=== PATIENT | male | born 1945 | race Caucasian/White ===

== ENCOUNTER 2019-06-24 10:08 | Observation (INO) | payer OTHER ==
[~2019-06-24] VITALS: Ht 172.7 cm; Wt 75.7 kg
[2019-06-24 10:45] LABS: BASOPHILS % (AUTO) 0.2 % (0.0-5.0); EOSINOPHILS % (AUTO) 1.7 % (0.0-8.0); HEMATOCRIT 34.6 % (42-54); LYMPHOCYTES % (AUTO) 20.6 % (21.0-51.0); MEAN CORPUSCULAR HGB CONC 33.2 g/dL (32.0-36.0); MEAN CORPUSCULAR VOLUME 87.4 fL (79-99); MONOCYTES % (AUTO) 6.1 % (3.0-13.0); NEUTROPHILS % (AUTO) 70.7 % (40.0-77.0); PLATELET COUNT (AUTO) 114 K/uL (130-400); RED BLOOD CELL COUNT(AUTO) 3.96 MIL/uL (4.50-6.20); WHITE BLOOD COUNT (AUTO) 4.1 K/uL (4.8-10.8)
[2019-06-24 10:54] LABS: CREATININE 1.2 mg/dL (0.5-1.5); POTASSIUM 4.4 mmol/L (3.5-5.1)
[2019-06-24 10:58] LABS: ALBUMIN 3.5 g/dL (3.5-5.0); BILIRUBIN,TOTAL 0.7 mg/dL (0.2-1.0); INR 0.98 (0.85-1.15); PARTIAL THROMBOPLASTIN TIME 23.8 SEC (26.3-35.5); PROTHROMBIN TIME 10.3 SEC (9.6-11.6); TOTAL PROTEIN, SERUM 7.9 g/dL (6.0-8.3)
[2019-06-24] MEDS ORDERED: SODIUM CHLORIDE 0.9% 100 ML IV ONE (12:32)
[2019-06-24] MEDS ORDERED: ACETAMINOPHEN 325 MG TAB PO PRN (15:30)
[2019-06-24] MEDS ORDERED: ONDANSETRON HCL 4 MG/2 ML VIAL IV PRN (15:30)
[2019-06-24] MEDS: INSULIN HUMULIN R 100 UNIT/ML 3ML SQ SCH ×2 (16:30→20:50)
[2019-06-24 17:41] LABS: HEMATOCRIT 30.7 % (42-54)
[2019-06-24 20:00] VITALS: BP 145/71
[2019-06-24] MEDS ORDERED: METF-444 PO (20:37)
[2019-06-24] MEDS ORDERED: METF500S7 PO ×2 (20:37)
[2019-06-24] MEDS ORDERED: IBRU420T PO (20:37)
[2019-06-24] MEDS ORDERED: FISH1CAP20 PO (20:37)
[2019-06-24] MEDS ORDERED: HYDR25TA PO (20:37)
[2019-06-24] MEDS ORDERED: DOCU-116 PO (20:37)
[2019-06-24] MEDS ORDERED: HYDR-4453 PO (20:37)
[2019-06-24] MEDS ORDERED: INSLAN SQ (20:37)
[2019-06-24] MEDS ORDERED: PANT40TA25 PO (20:37)
[2019-06-24] MEDS ORDERED: GABA-531 PO ×2 (20:37)
[2019-06-24] MEDS ORDERED: GLIP10TA9 PO (20:37)
[2019-06-24] MEDS ORDERED: MULT-1289 PO (20:37)
[2019-06-24] MEDS ORDERED: ENAL20TA PO (20:37)
[2019-06-24] MEDS ORDERED: EMPA25TA PO (20:37)
[2019-06-24] MEDS ORDERED: ASCO500T10 PO (20:37)
[2019-06-24] MEDS ORDERED: FERR-63 PO ×3 (20:37)
[2019-06-24] MEDS: SODIUM CHLORIDE 0.9% 1000ML 1,000 ML IV SCH (23:00)
[2019-06-24 23:05] LABS: HEMATOCRIT 32.3 % (42-54)
[2019-06-24 23:35] VITALS: BP 133/62
[2019-06-25] VITALS (16 sets, daily range): BP systolic 129–166; BP diastolic 58–84
[2019-06-25] MEDS ORDERED: LIDOCAINE 5% TOPICAL PATCH TP ONE (01:00)
[2019-06-25] MEDS: SODIUM CHLORIDE 0.9% 1000ML 1,000 ML IV SCH ×2 (04:49→08:56)
[2019-06-25 05:42] LABS: CREATININE 1.2 mg/dL (0.5-1.5); POTASSIUM 3.7 mmol/L (3.5-5.1)
[2019-06-25 05:43] LABS: HEMATOCRIT 29.4 % (42-54); MEAN CORPUSCULAR HEMOGLOBIN 28.7 pg (27.0-33.0); MEAN CORPUSCULAR HGB CONC 32.7 g/dL (32.0-36.0); MEAN CORPUSCULAR VOLUME 87.8 fL (79-99); PLATELET COUNT (AUTO) 97 K/uL (130-400); RED BLOOD CELL COUNT(AUTO) 3.35 MIL/uL (4.50-6.20); RED CELL DISTRIBUTION WIDTH 14.1 % (11.0-15.5)
--- NOTE | 2019-06-25 06:20 | NUR ---
EGD PT TAKEN TO ENDOSCOPY BY TECH VIA BED AT THIS TIME.
[2019-06-25] MEDS: INSULIN HUMULIN R 100 UNIT/ML 3ML SQ SCH ×2 (06:35→11:30)
[2019-06-25] MEDS ORDERED: PROPOFOL 10 MG/ML 20ML VIAL IV ONE (07:10)
[2019-06-25 08:24] LABS: LYMPHOCYTES % (MANUAL) 18 % (22-44); MONOCYTES % (MANUAL) 14 % (2-9); REACTIVE LYMPHOCYTES 1 % (0-0); SEGMENTED NEUTROPHILS % 67 % (40-70)
[2019-06-25 08:25] LABS: PLATELET MORPHOLOGY COMMENT ADEQUATE
[2019-06-25] MEDS ORDERED: PANTOPRAZOLE SODIUM 40 MG TABLET.DR PO SCH (09:00)
--- NOTE | 2019-06-25 18:00 | NUR ---
DR. READ I also informed her of patient's platelets. Stated no intervention due at this tie for current platelet count. Patient had colonoscopy 2 years ago. Patient also added he has had several and the latest ones were negative findings. He stated he will call Dr. Read's office and make appointment for follow up and willdiscuss issue of possible outpatient colonoscopy with her.
--- NOTE | 2019-06-25 18:11 | NUR ---
DR. GUTIERREZ Called doctor Jacek. Stated patient did not want a colonoscopy at this time but to ask him again. Patient stated he will not be staying tonight here. That he will make arrangements at Dr. Higuera to have a colonoscopy done as an outpatient. Dr. Bo updated and patient discharged.
== END 2019-06-25 18:30 | disposition home or self-care (01) ==
LOC: EDH 10:08 → EDHIP 15:29 → 3CH 19:43
PROVIDERS: ADMIT Family Medicine; ATTEND Family Medicine
DX: K92.1 Melena (principal); K31.89 Other diseases of stomach and duodenum; K29.80 Duodenitis without bleeding; K44.9 Diaphragmatic hernia without obstruction or gangrene; I10 Essential (primary) hypertension; D64.9 Anemia, unspecified; E11.65 Type 2 diabetes mellitus with hyperglycemia; C88.0 Waldenstrom macroglobulinemia; Z85.72 Personal history of non-Hodgkin lymphomas; Z87.11 Personal history of peptic ulcer disease; Z79.4 Long term (current) use of insulin; Z79.899 Other long term (current) drug therapy
CPT/HCPCS: 36415 ×2; 43239; 80048; 80053; 82270; 82948 ×2; 85014 ×2; 85018 ×2; 85025; 85027; 85610; 85730; 96360; 96361; 99284; A4620 ×2; G0378 ×26; J2704; J7030

== ENCOUNTER → 2019-07-19 | Outpatient (CLI) | payer MEDICARE, OTHER ==
[~2019-07-19] MED LIST: ASCO500T10 PO; DOCU-116 PO; EMPA25TA PO; ENAL20TA PO; FERR-63 PO; FISH1CAP20 PO; GABA-531 PO; GLIP10TA9 PO; HYDR-4453 PO; HYDR25TA PO; IBRU420T PO; INSLAN SQ; METF-444 PO; METF500S7 PO; MULT-1289 PO; PANT40TA25 PO
== END | disposition home or self-care (01) ==
LOC: RAH 08:06
PROVIDERS: ATTEND Internal Medicine Gastroenterology
DX: N28.1 Cyst of kidney, acquired (principal); I85.00 Esophageal varices without bleeding; D69.8 Other specified hemorrhagic conditions
CPT/HCPCS: 76700

== ENCOUNTER 2022-06-30 09:27 | Emergency (ER) | payer MEDICARE, OTHER ==
[~2022-06-30] VITALS: Ht 172.7 cm; Wt 81.6 kg
[~2022-06-30 09:27] MED LIST changes: -ENAL20TA PO; +ENAL20TA18 PO; -METF500S7 PO; +METF500S9 PO; -PANT40TA25 PO; +PANT40TA54 PO
[2022-06-30 10:11] LABS: BASOPHILS % (AUTO) 0.2 % (0.0-5.0); EOSINOPHILS % (AUTO) 0.9 % (0.0-8.0); LYMPHOCYTES % (AUTO) 1.5 % (21.0-51.0); MEAN CORPUSCULAR HEMOGLOBIN 29.2 pg (27.0-33.0); MEAN CORPUSCULAR HGB CONC 32.9 g/dL (32.0-36.0); MEAN CORPUSCULAR VOLUME 88.8 fL (79-99); MONOCYTES % (AUTO) 5.5 % (3.0-13.0); PLATELET COUNT (AUTO) 101 K/uL (130-400); RED BLOOD CELL COUNT(AUTO) 3.94 MIL/uL (4.50-6.20); RED CELL DISTRIBUTION WIDTH 15.2 % (11.0-15.5); WHITE BLOOD COUNT (AUTO) 12.3 K/uL (4.8-10.8)
[2022-06-30 10:28] LABS: ALBUMIN 2.3 g/dL (3.5-5.0); CREATININE 1.6 mg/dL (0.5-1.5); POTASSIUM 4.7 mmol/L (3.5-5.1); TOTAL PROTEIN, SERUM 6.9 g/dL (6.0-8.3)
[2022-06-30] MEDS ORDERED: 0.9%NACL 1000ML 1,000 ML IV ONE ×2 (11:00→12:30)
[2022-06-30 12:33] LABS: APPEARANCE,URINE CLEAR (CLEAR); BILIRUBIN,URINE NEGATIVE (NEGATIVE); COLOR,URINE YELLOW (YELLOW); GLUCOSE, URINE (UA) >=1000 mg/dL (NEGATIVE); KETONES,URINE 10 mg/dL (NEGATIVE); LEUKOCYTE ESTERASE ,URINE NEGATIVE Leu/uL (NEGATIVE); NITRATE,URINE NEGATIVE (NEGATIVE); OCCULT BLOOD,URINE SMALL (NEGATIVE); PH,URINE 5.5 (5.0-8.0); PROTEIN,URINE 50 mg/dL (NEGATIVE); UROBILINOGEN,URINE 0.2 mg/dL (0.2-1.0)
[2022-06-30 12:46] LABS: BACTERIA,URINE RARE /HPF (None Seen); MUCUS,URINE RARE LPF (None Seen)
[2022-06-30 13:42] VITALS: BP 149/42
[2022-07-02] MEDS ORDERED: GABA-529 PO (01:07)
[2022-07-02] MEDS ORDERED: GLIP10TA9 PO (07:28)
[2022-07-02] MEDS ORDERED: MELA10TA PO (07:28)
[2022-07-02] MEDS ORDERED: METF500S9 PO (07:28)
[2022-07-02] MEDS ORDERED: CARV6.25 PO (07:28)
[2022-07-02] MEDS ORDERED: EMPA25TA PO (07:28)
[2022-07-02] MEDS ORDERED: DOCU100P MC (07:28)
[2022-07-02] MEDS ORDERED: GABA300S PO (07:28)
[2022-07-02] MEDS ORDERED: HYDR-4068 PO (07:28)
== END 2022-06-30 12:10 | disposition home or self-care (01) ==
LOC: EDH 09:27
DX: E86.0 Dehydration (principal); E11.9 Type 2 diabetes mellitus without complications; E78.00 Pure hypercholesterolemia, unspecified; I10 Essential (primary) hypertension; Z79.84 Long term (current) use of oral hypoglycemic drugs; Z79.899 Other long term (current) drug therapy; Z85.6 Personal history of leukemia
CPT/HCPCS: 99285; 96360; 84484; 80053; 85025; 81001; 36415; J7030 ×2